=== PATIENT | female | born 1990 | race American Indian/Alaskan Native ===

== ENCOUNTER 2021-01-31 17:22 | Emergency (ER) | payer OTHER ==
[2021-01-31 20:14] VITALS: BP 139/67
[2021-01-31 21:39] LABS: Basophils % (Auto) 0.4 % (0.0-1.8); Eosinophils # (Auto) 0.1 K/mm3 (0.0-0.4); Eosinophils % (Auto) 2.1 % (0.0-4.3); Hematocrit 36.5 % (30.3-42.9); Hemoglobin 12.3 gm/dl (10.1-14.3); Lymphocytes # (Auto) 1.8 K/mm3 (1.2-5.4); Lymphocytes % (Auto) 29.3 % (13.4-35.0); Mean Corpuscular HGB Conc 34 % (30-34); Mean Corpuscular Volume 91 fl (79-97); Monocytes # (Auto) 0.6 K/mm3 (0.0-0.8); Monocytes % (Auto) 9.9 % (0.0-7.3); Platelet Count 246 K/mm3 (140-440); Red Blood Count 4.03 M/mm3 (3.65-5.03); Red Cell Distribution Width 13.2 % (13.2-15.2)
[2021-01-31 21:49] LABS: INR 0.95 (0.87-1.13)
[2021-01-31 21:50] LABS: Partial Thromboplastin Time 25.2 Sec. (24.2-36.6)
[2021-01-31 22:02] LABS: Alanine Aminotransferase 12 units/L (7-56); Blood Urea Nitrogen 12 mg/dL (7-17); Hemolysis Index 1
[2021-01-31 22:06] LABS: BUN/Creatinine Ratio 17
--- NOTE | 2021-01-31 22:31 | Vascular Lab Report ---
DUPLEX DOPPLER LOWER EXTREMITY VEINS, RIGHT INDICATION / CLINICAL INFORMATION: Right calf pain/swelling. History of PTE. TECHNIQUE: Duplex doppler imaging was performed through the veins of the right lower extremity using venous comp ression and other maneuvers. COMPARISON: None available. FINDINGS: RIGHT COMMON FEMORAL VEIN: Negative. RIGHT FEMORAL VEIN: Negative. RIGHT POPLITEAL VEIN: Negative. RIGHT CALF VEINS: Negative. ADDITIONAL FINDINGS: There is no evidence of a popliteal cyst or other abnormality. IMPRESSION: No sonographic evidence for DVT in the right lower extremity. Signer Name: Gavino Kline MD Signed: 01/31/2021 10:26 PM Workstation Name: [id number]
--- NOTE | 2021-01-31 22:41 | Emergency Department Report ---
ED Extremity Problem HPI - General Chief complaint: Extremity Injury, Lower Stated complaint: RT FOOT PAINS Time Seen by Provider: 01/31/21 20:55 Source: patient Mode of arrival: Ambulatory Limitations: No Limitations - History of Present Illness Initial comments: Patient is a 30-year-old female presents emergency room complaints of right calf pain that began 3 days ago. She states that the last 3 weeks she has been working a lot and is constantly on her feet all day. She denies any fall or injury. She states that when she flexes her foot and toes she feels pain in the back of her calf. She denies any numbness or weakness. She states she has noticed some swelling to the calf. No fever, no vomiting, no diarrhea, no redness, no increased warmth, no chills. Past medical history of PE and lupus. No allergies to medications. She denies any chest pain or shortness of breath. Patient states that she is approximately 8 weeks by has not seen OB yet. She denies any abdominal pain or vaginal bleeding. - Related Data Previous Rx's Medication Instructions Recorded Last Taken Type Acetaminophen [Tylenol] 650 mg PO Q8HR PRN #20 capsule 01/31/21 Unknown Rx Menthol/Camphor [[place] 1 applicatio TP BID #18 oint...g. 01/31/21 Unknown Rx Ointment] ED Review of Systems ROS: Stated complaint: RT FOOT PAINS Other details as noted in HPI Comment: All other systems reviewed and negative ED Past Medical Hx - Past Medical History Previous Medical History?: Yes Hx Pulmonary Embolism: Yes Additional medical history: Lupus - Surgical History Past Surgical History?: No - Social History Smoking Status: Current Every Day Smoker Substance Use Type: None - Medications Home Medications: Home Medications Medication Instructions Recorded Confirmed Last Taken Type Acetaminophen [Tylenol] 650 mg PO Q8HR PRN #20 capsule 01/31/21 Unknown Rx Menthol/Camphor [[place] 1 applicatio TP BID #18 oint...g. 01/31/21 Unknown Rx Ointment] ED Physical Exam - General Limitations: No Limitations General appearance: alert, in no apparent distress - Head Head exam: Present: atraumatic, normocephalic - Eye Eye exam: Present: normal appearance - ENT ENT exam: Present: mucous membranes moist - Respiratory Respiratory exam: Absent: respiratory distress, accessory muscle use - Extremities Exam Extremities exam: Present: other (ttp to the right calf, mild edema, no increased warmth, no erythema, no skin changes, no bony ttp of the RLE, no deformity, FROM of the RLE, neurovascularly intact, achiles tendon is intact) - Neurological Exam Neurological exam: Present: alert, oriented X3 - Psychiatric Psychiatric exam: Present: normal affect, normal mood - Skin Skin exam: Present: warm, dry, intact ED Course Vital Signs 01/31/21 20:12 Temperature 98.3 F Pulse Rate 71 Respiratory 18 Rate Blood Pressure 139/67 O2 Sat by Pulse 100 Oximetry ED Medical Decision Making - Lab Data Result diagrams: 01/31/21 21:07 01/31/21 21:07 Lab Results 01/31/21 01/31/21 01/31/21 Range/Units 21:07 21:07 21:07 WBC 6.0 (4.5-11.0) K/mm3 RBC 4.03 (3.65-5.03) M/mm3 Hgb 12.3 (10.1-14.3) gm/dl Hct 36.5 (30.3-42.9) % MCV 91 (79-97) fl MCH 30 (28-32) pg MCHC 34 (30-34) % RDW 13.2 (13.2-15.2) % Plt Count 246 (140-440) K/mm3 Lymph % (Auto) 29.3 (13.4-35.0) % [place] % (Auto) 9.9 H (0.0-7.3) % Eos % (Auto) 2.1 (0.0-4.3) % Baso % (Auto) 0.4 (0.0-1.8) % Lymph # (Auto) 1.8 (1.2-5.4) K/mm3 [place] # (Auto) 0.6 (0.0-0.8) K/mm3 Eos # (Auto) 0.1 (0.0-0.4) K/mm3 Baso # (Auto) 0.0 (0.0-0.1) K/mm3 Seg Neutrophils % 58.3 (40.0-70.0) % Seg Neutrophils # 3.5 (1.8-7.7) K/mm3 PT 12.5 (12.2-14.9) Sec. INR 0.95 (0.87-1.13) APTT 25.2 (24.2-36.6) Sec. Sodium 137 (137-145) mmol/L Potassium 3.8 (3.6-5.0) mmol/L Chloride 102.1 (98-107) mmol/L Carbon Dioxide 25 (22-30) mmol/L Anion Gap 14 mmol/L BUN 12 (7-17) mg/dL Creatinine 0.7 (0.6-1.2) mg/dL Estimated GFR > 60 ml/min BUN/Creatinine Ratio 17 % Glucose 81 (65-100) mg/dL Calcium 9.0 (8.4-10.2) mg/dL Magnesium 2.10 (1.7-2.3) mg/dL Total Bilirubin 0.30 (0.1-1.2) mg/dL AST 12 (5-40) units/L ALT 12 (7-56) units/L Alkaline Phosphatase 49 (35-129) units/L Total Creatine Kinase 72 (30-135) units/L Total Protein 7.0 (6.3-8.2) g/dL Albumin 4.0 (3.9-5) g/dL Albumin/Globulin Ratio 1.3 % HCG, Qual (Negative) 01/31/21 Range/Units 21:07 WBC (4.5-11.0) K/mm3 RBC (3.65-5.03) M/mm3 Hgb (10.1-14.3) gm/dl Hct (30.3-42.9) % MCV (79-97) fl MCH (28-32) pg MCHC (30-34) % RDW (13.2-15.2) % Plt Count (140-440) K/mm3 Lymph % (Auto) (13.4-35.0) % [place] % (Auto) (0.0-7.3) % Eos % (Auto) (0.0-4.3) % Baso % (Auto) (0.0-1.8) % Lymph # (Auto) (1.2-5.4) K/mm3 [place] # (Auto) (0.0-0.8) K/mm3 Eos # (Auto) (0.0-0.4) K/mm3 Baso # (Auto) (0.0-0.1) K/mm3 Seg Neutrophils % (40.0-70.0) % Seg Neutrophils # (1.8-7.7) K/mm3 PT (12.2-14.9) Sec. INR (0.87-1.13) APTT (24.2-36.6) Sec. Sodium (137-145) mmol/L Potassium (3.6-5.0) mmol/L Chloride (98-107) mmol/L Carbon Dioxide (22-30) mmol/L Anion Gap mmol/L BUN (7-17) mg/dL Creatinine (0.6-1.2) mg/dL Estimated GFR ml/min BUN/Creatinine Ratio % Glucose (65-100) mg/dL Calcium (8.4-10.2) mg/dL Magnesium (1.7-2.3) mg/dL Total Bilirubin (0.1-1.2) mg/dL AST (5-40) units/L ALT (7-56) units/L Alkaline Phosphatase (35-129) units/L Total Creatine Kinase (30-135) units/L Total Protein (6.3-8.2) g/dL Albumin (3.9-5) g/dL Albumin/Globulin Ratio % HCG, Qual Positive (Negative) - Radiology Data Radiology results: report reviewed Ordering Physician: KLAUDIA RAZO Date of Service: 01/31/21 Procedure(s): VL venous duplex LE RT Accession Number(s): [id number] cc: KLAUDIA RAZO DUPLEX DOPPLER LOWER EXTREMITY VEINS, RIGHT INDICATION / CLINICAL INFORMATION: Right calf pain/swelling. History of PTE. TECHNIQUE: Duplex doppler imaging was performed through the veins of the right lower extremity using venous compression and other maneuvers. COMPARISON: None available. FINDINGS: RIGHT COMMON FEMORAL VEIN: Negative. RIGHT FEMORAL VEIN: Negative. RIGHT POPLITEAL VEIN: Negative. RIGHT CALF VEINS: Negative. ADDITIONAL FINDINGS: There is no evidence of a popliteal cyst or other abnormality. IMPRESSION: No sonographic evidence for DVT in the right lower extremity. Signer Name: Gavino Kline MD Signed: 01/31/2021 10:26 PM Workstation Name: [id number] Transcribed By: RT Dictated By: Gavino Kline MD Electronically Authenticated By: Gavino Kline MD Signed Date/Time: 01/31/212225 DD/ 24 TD/TT: - Medical Decision Making Patient is a 30-year-old female presents emergency room complaints of right calf pain that began 3 days ago. She states that the last 3 weeks she has been working a lot and is constantly on her feet all day. She denies any fall or injury. She states that when she flexes her foot and toes she feels pain in the back of her calf. She denies any numbness or weakness. She states she has not iced some swelling to the calf. No fever, no vomiting, no diarrhea, no redness, no increased warmth, no chills. Past medical history of PE and lupus. No allergies to medications. She denies any chest pain or shortness of breath. Patient states that she is approximately 8 weeks by has not seen OB yet. She denies any abdominal pain or vaginal bleeding. vss. on exam: ttp to the right calf, mild edema, no increased warmth, no erythema, no skin changes, no bony ttp of the RLE, no deformity, FROM of the RLE, neurovascularly intact, achiles tendon is intact. US RLE: IMPRESSION: No sonographic evidence for DVT in the right lower extremity. labs are stable. given prescription for tiger balm ointment and tylenol. advised pt Please use medication as prescribed. May use ice 15 minutes at a time, heating pad for 15 minutes at a time, rest, elevation of the leg, Epsom salt bath. Follow-up with your primary care doctor. Follow- up with a orthopedic doctor. Return to emergency room for new or symptoms Follow-up with [facility] regarding care, take a vitamin over-the- counter, return to emergency room for any abdominal pain or vaginal bleeding Critical care attestation.: If time is entered above; I have spent that time in minutes in the direct care of this critically ill patient, excluding procedure time. ED Disposition Clinical Impression: Right calf pain, Elevated serum hCG Disposition: - TO HOME OR SELFCARE Is pt being admited?: No Does the pt Need Aspirin: No Condition: Stable Additional Instructions: Please use medication as prescribed. May use ice 15 minutes at a time, heating pad for 15 minutes at a time, rest, elevation of the leg, Epsom salt bath. Follow-up with your primary care doctor. Follow-up with a orthopedic doctor. Return to emergency room for new or symptoms Follow-up with [facility] regarding care, take a vitamin [id number], return to emergency room for any abdominal pain or vaginal bleeding Prescriptions: Menthol/Camphor [[place] Ointment] 1 applicatio TP BID #18 oint...g. Acetaminophen [Tylenol] 650 mg PO Q8HR PRN #20 capsule PRN Reason: pain Referrals: PRIMARY CARE, [Primary Care Provider] - 2-3 Days GAVINO BEARD MD [Staff Physician] - 2-3 Days [facility] [Provider Group] - 2-3 Days Time of Disposition: 22:39 Print Language: GERMAN
== END 2021-01-31 22:50 | disposition home or self-care (01) ==
LOC: ED 17:22
DX: M79.661 Pain in right lower leg (principal); E34.9 Endocrine disorder, unspecified; F17.200 Nicotine dependence, unspecified, uncomplicated; Z79.899 Other long term (current) drug therapy
CPT/HCPCS: 36415; 80053; 82550; 83735; 84703; 85025; 85610; 85730

== ENCOUNTER 2021-10-11 15:13 | Emergency (ER) | payer OTHER ==
--- NOTE | 2021-10-11 15:30 | Event Note ---
ED Screening Note ED Screening Note: 30 yo AA comes to ER with SOB, headache and cp. post 09/09 not covid immunized hx SLE and PE off lovenox for several days HR 110 on provider exam psh denies denies cig/etoh/drugs home meds lovenox - out prednisone- out plaquenel fe This initial assessment/diagnostic orders/clinical plan/treatment(s) is/are subject to change based on patients health status, clinical progression and re- assessment by fellow clinical providers in the ED. Further treatment and workup at subsequent clinical providers discretion. Patient/guardian urged not to elope from the ED as their condition may be serious if not clinically assessed and managed. Initial orders include: given hx ro PE diff covid/anxiety/lupus flare
--- NOTE | 2021-10-11 15:50 | Emergency Department Report ---
ED Shortness of Breath HPI - General Chief Complaint: Dyspnea/Respdistress Stated Complaint: sob Time Seen by Provider: 10/11/21 15:41 Source: patient Mode of arrival: Ambulatory Limitations: No Limitations - History of Present Illness Initial Comments: Patient presents with shortness of breath. This been present for about a day. This was worse with exertion. Even now, she feels as though she cannot catch her breath when she talks a lot. She has no chest pain. There is no vomiting. There is no diarrhea. She has had no history of trauma. She does report having a cough with some greenish phlegm. She has had a pulmonary embolism before. She also has lupus. That is sometimes made her short of breath. Patient does not know what is going on and decided to come here for evaluation. Patient has no pain or swelling in the legs. There is no history of recent travel or trauma. She did have a normal delivery about 1 month prior. She has been off of her Lovenox for the last couple of days. She also reports having a slight headache. There is no muscle ache or body ache. There is no hemoptysis. - Related Data Previous Rx's Medication Instructions Recorded Last Taken Type Acetaminophen [Tylenol] 650 mg PO Q8HR PRN #20 capsule 01/31/21 Unknown Rx Menthol/Camphor [[place] 1 applicatio TP BID #18 oint...g. 01/31/21 Unknown Rx Ointment] Apixaban [Eliquis] 5 mg PO BID #75 tab 10/11/21 Unknown Rx HYDROcodone/APAP 5-325 [[place] 1 each PO Q6HR PRN #12 tablet 10/11/21 Unknown Rx 5/325] Allergies Allergy/AdvReac Type Severity Reaction Status Date / Time No Known Allergies Allergy Verified 10/11/21 15:18 ED Review of Systems ROS: Stated complaint: sob Other details as noted in HPI Comment: All other systems reviewed and negative Constitutional: denies: weakness Eyes: denies: eye pain ENT: denies: throat pain Respiratory: see HPI Cardiovascular: denies: chest pain Endocrine: denies: unexplained weight loss Gastrointestinal: denies: abdominal pain Genitourinary: denies: dysuria Musculoskeletal: denies: back pain Skin: denies: rash Neurological: as per HPI, headache Hematological/Lymphatic: denies: easy bruising ED Past Medical Hx - Past Medical History Hx Congestive Heart Failure: No Hx Diabetes: No Hx Pulmonary Embolism: Yes Hx Asthma: No Hx COPD: No Additional medical history: Lupus/ PE - Surgical History Past Surgical History?: No - Family History Family history: hypertension - Social History Smoking Status: Current Every Day Smoker Substance Use Type: None - Medications Home Medications: Home Medications Medication Instructions Recorded Confirmed Last Taken Type Acetaminophen [Tylenol] 650 mg PO Q8HR PRN #20 capsule 01/31/21 Unknown Rx Menthol/Camphor [[place] 1 applicatio TP BID #18 oint...g. 01/31/21 Unknown Rx Ointment] Apixaban [Eliquis] 5 mg PO BID #75 tab 10/11/21 Unknown Rx HYDROcodone/APAP 5-325 [[place] 1 each PO Q6HR PRN #12 tablet 10/11/21 Unknown Rx 5/325] ED Physical Exam - General Limitations: No Limitations General appearance: alert, in no apparent distress, other (Pulse ox noted and normal) - Head Head exam: Present: atraumatic, normocephalic - Eye Eye exam: Present: normal appearance, EOMI - ENT ENT exam: Present: normal orophraynx, normal external ear exam - Neck Neck exam: Present: normal inspection. Absent: meningismus - Respiratory Respiratory exam: Present: normal lung sounds bilaterally, respiratory distress (Mild). Absent: wheezes - Cardiovascular Cardiovascular Exam: Present: regular rate, normal rhythm - GI/Abdominal GI/Abdominal exam: Present: soft. Absent: tenderness - Extremities Exam Extremities exam: Absent: pedal edema, calf tenderness - Back Exam Back exam: Absent: CVA tenderness (R), CVA tenderness (L) - Neurological Exam Neurological exam: Present: alert, oriented X3, CN II-XII intact. Absent: motor sensory deficit - Psychiatric Psychiatric exam: Present: normal affect, normal mood - Skin Skin exam: Present: warm, dry ED Course Vital Signs 10/11/21 15:20 Temperature 97.6 F Pulse Rate 101 H Respiratory 20 Rate Blood Pressure 127/82 O2 Sat by Pulse 100 Oximetry - Reevaluation(s) Reevaluation #1: 10/11/21 15:[address] ordered. Old records noted. Reevaluation #2: 10/11/21 19:36 CT scan was noted. Case was discussed with the patient, interventional radiology, and Dr. Reynolds. She is not hypoxic. There is no evidence of heart strain based on CT. She does not have a troponin leak. We have discussed outpatient management. It is felt that that would be appropriate. Patient was subsequently discharged. ED Medical Decision Making - Lab Data Result diagrams: 10/11/21 16:16 10/11/21 16:16 Rhythm strip: Normal sinus rhythm without ectopy. Monitor observed in seconds. - Radiology Data Radiology results: report reviewed - Medical Decision Making Patient presents with dyspnea. She was found to have bilateral pulmonary emboli without cardiac strain. Patient is not hypoxic. She has been noncompliant with medication. Case has been discussed with interventional radiology. Their plan would not be intervention. Patient is comfortable going home with anticoagulation. We discussed medication. We have chosen Eliquis. Patient was started on this empirically here based on her current presentation and discharge. She was referred for follow-up. Critical Care Time: No Critical care attestation.: If time is entered above; I have spent that time in minutes in the direct care of this critically ill patient, excluding procedure time. ED Disposition Clinical Impression: Shortness of breath, Viral URI Acute headache Qualifiers: Headache type: unspecified Intractability: not intractable Qualified Code(s): R51.9 - Headache, unspecified Pulmonary embolism Qualifiers: Pulmonary embolism type: multiple subsegmental (without acute cor pulmonale) Qualified Code(s): I26.94 - Multiple subsegmental pulmonary emboli without acute cor pulmonale Disposition: 01 HOME / SELF CARE / HOMELESS Is pt being admited?: No Condition: Stable Instructions: Pulmonary Embolism Additional Instructions: Strengthening water. Take the blood thinners. Return for problems. Follow-up with your family doctor or the referral doctor for recheck. Prescriptions: Apixaban [Eliquis] 5 mg PO BID #75 tab HYDROcodone/APAP 5-325 [[place] 5/325] 1 each PO Q6HR PRN #12 tablet PRN Reason: Pain Referrals: DENNY HULL MD [Primary Care Provider] - 3-5 Days KATHARINE BERUMEN MD [Staff Physician] - 3-5 Days
[2021-10-11 16:50] LABS: Hematocrit 43.2 % (30.3-42.9); Hemoglobin 13.9 gm/dl (10.1-14.3); Mean Corpuscular HGB Conc 32 % (30-34); Mean Corpuscular Volume 90 fl (79-97); Platelet Count 239 K/mm3 (140-440); Red Blood Count 4.83 M/mm3 (3.65-5.03)
[2021-10-11 17:27] LABS: Alanine Aminotransferase 18 units/L (7-56); Albumin 4.3 g/dL (3.9-5); BUN/Creatinine Ratio 17; Blood Urea Nitrogen 10 mg/dL (7-17); Calcium 9.4 mg/dL (8.4-10.2); Hemolysis Index 7
--- NOTE | 2021-10-11 18:24 | Cat Scan Report ---
CTA CHEST WITH IV CONTRAST INDICATION: SOB HX PE OFF LOVENOX; POST . TECHNIQUE: Axial CT images were obtained through the chest after injection of 100 mL Omnipaque 350 IV contrast. 3 plane MIP reconstructions were produced. All CT scans at this location are performed using CT dose reduction for ALARA by means of automated exposure control. COMPARISON: None available. FINDINGS: Pulmonary Arteries: There are several bilateral lobar and segmental pulmonary emboli with additional pulmonary embolus extending into the right main pulmonary artery. Lungs: No significant abnormality. Trachea and Bronchi: No significant abnormality. Heart and Pericardium: No significant abnormality. Vasculature: No significant abnormality. Lymphatics: No lymphadenopathy. Additional Findings: None. Upper Abdomen: No acute findings. Skeletal Structures: No acute findings or aggressive bone lesions. IMPRESSION: 1. Extensive severe bilateral lobar and segmental pulmonary emboli with pulmonary embolus seen in the right main pulmonary artery. 2. No additional acute findings. Findings called to Venus taking care of the patient 5:20 PM central time. Signer Name: [place] Thorpe MD Signed: 10/11/2021 6:20 PM Workstation Name: [id number]
[2021-10-11] MEDS ORDERED: HYDROcodone/ACETAMINOPHEN 5-325 MG TAB PO ONE (19:04)
[2021-10-11 19:46] LABS: INR 0.88 (0.87-1.13); Partial Thromboplastin Time 25.9 Sec. (24.2-36.6)
[2021-10-11] MEDS ORDERED: APIXABAN 5 MG TAB PO SCH (20:15)
[2021-10-11 20:35] VITALS: BP 136/98
--- NOTE | 2021-10-12 13:12 | Electrocardiograph Report ---
[facility] Test Date: 2021-10-11 Test Time: 20:17:06 Pat Name: JANNETH INGRAM Department: Room: Gender: F Mds Rn: MARCI : 1990 Requested By: SANTIAGO LIMA Order Number: [id number] Reading MD: Campbell Vasquez Measurements Intervals [place] Rate: 88 P: 39 CA: 143 QRS: 55 QRSD: 85 T: 28 QT: 367 QTc: 445 Interpretive Statements Sinus rhythm No previous ECG available for comparison Electronically Signed On 10-12-2021 13:11:43 EST by Campbell Vasquez
== END 2021-10-11 19:30 | disposition home or self-care (01) ==
LOC: ED 15:13
DX: R06.02 Shortness of breath (principal); R51.9 Headache, unspecified; I10 Essential (primary) hypertension; I26.99 Other pulmonary embolism without acute cor pulmonale; J06.9 Acute upper respiratory infection, unspecified; F17.200 Nicotine dependence, unspecified, uncomplicated; Z79.899 Other long term (current) drug therapy
CPT/HCPCS: 36415; 71275; 80053; 83880; 84484; 85027; 85610; 85730; 86140; 93005; 99284; Q9967